=== PATIENT | male | born 1990 | race American Indian/Alaskan Native ===

== ENCOUNTER 2020-05-08 20:38 | Emergency (ER) | payer SELFPAY ==
[2020-05-08 21:42] VITALS: BP 127/64
--- NOTE | 2020-05-08 21:51 | Emergency Department Report ---
ED General Adult HPI - General Chief complaint: Skin/Abscess/Foreign Body Stated complaint: FINGER INFECTION Time Seen by Provider: 05/08/20 21:47 Source: patient Mode of arrival: Ambulatory Limitations: No Limitations - History of Present Illness Initial comments: 30-year-old -[place] male patient presents with complaints of right middle finger pain and swelling x5 days. Patient states 2 days ago he went to an urgent care and was placed on Bactrim, however the swelling and pain is worsened. He denies any fever/chills/sweats and states he does have difficulty bending the finger due to swelling and pain. No loss of sensation per patient. He denies any past medical history. Severity scale (0 -10): 2 - Related Data Previous Rx's Medication Instructions Recorded Last Taken Type Acetaminophen/Codeine [Tylenol #3] 1 tab PO Q6H PRN #20 tab 07/12/15 Unknown Rx Cyclobenzaprine [Flexeril] 10 mg PO TID PRN #30 tablet 07/12/15 Unknown Rx Ibuprofen [Motrin] 600 mg PO Q8H PRN #40 tablet 07/12/15 Unknown Rx Mupirocin [Bactroban 2% OINT] 1 applic TP TID 7 Days #1 tube 05/08/20 Unknown Rx traMADoL [Ultram 50 MG tab] 50 mg PO Q8HR PRN #4 tablet 05/08/20 Unknown Rx Allergies Allergy/AdvReac Type Severity Reaction Status Date / Time petrolatum,white Allergy Hives Verified 07/11/15 21:47 [From Vaseline] ED Review of Systems ROS: Stated complaint: FINGER INFECTION Other details as noted in HPI Constitutional: denies: chills, fever, malaise Musculoskeletal: joint swelling, arthralgia Skin: change in color Neurological: denies: headache, numbness, paresthesias ED Past Medical Hx - Past Medical History Previous Medical History?: No - Surgical History Past Surgical History?: No - Social History Smoking Status: Current Some Day Smoker Substance Use Type: Alcohol - Medications Home Medications: Home Medications Medication Instructions Recorded Confirmed Last Taken Type Acetaminophen/Codeine [Tylenol #3] 1 tab PO Q6H PRN #20 tab 07/12/15 Unknown Rx Cyclobenzaprine [Flexeril] 10 mg PO TID PRN #30 tablet 07/12/15 Unknown Rx Ibuprofen [Motrin] 600 mg PO Q8H PRN #40 tablet 07/12/15 Unknown Rx Mupirocin [Bactroban 2% OINT] 1 applic TP TID 7 Days #1 tube 05/08/20 Unknown Rx traMADoL [Ultram 50 MG tab] 50 mg PO Q8HR PRN #4 tablet 05/08/20 Unknown Rx ED Physical Exam - General Limitations: No Limitations General appearance: alert, in no apparent distress - Head Head exam: Present: atraumatic, normocephalic - Eye Eye exam: Present: normal appearance. Absent: scleral icterus - Respiratory Respiratory exam: Absent: respiratory distress - Cardiovascular Cardiovascular Exam: Present: regular rate - Extremities Exam Extremities exam: Present: full ROM - Neurological Exam Neurological exam: Present: alert, oriented X3, normal gait - Psychiatric Psychiatric exam: Present: normal affect, normal mood - Skin Skin exam: Present: warm, dry, other (Swelling and erythema with fluctuance to the lower nailbed of the right middle finger noted on exam consistent with paronychia; normal perfusion and sensation of the finger noted; there is decreased flexion of the finger secondary to swelling). Absent: rash ED Course Vital Signs 05/08/20 21:41 Temperature 98.4 F Pulse Rate 78 Respiratory 16 Rate Blood Pressure 127/64 O2 Sat by Pulse 97 Oximetry - I & D Finger Type of Procedure: Simple Site: Right middle finger Blade Size: 11 I & D Procedure: betadine prep, sterile drapes applied, sterile dressing applied Progress: Digital block performed the right middle finger with 7 cc of lidocaine 1% without epi. Moderate purulent drainage was obtained. Culture sent. Minimal bleeding occurred. Patient tolerated procedure well without any immediate complications. ED Medical Decision Making - Medical Decision Making 30-year-old -[place] male patient presents with complaints of right middle finger pain and swelling x5 days. Patient states 2 days ago he went to an urgent care and was placed on Bactrim, however the swelling and pain is worsened. He denies any fever/chills/sweats and states he does have difficulty bending the finger due to swelling and pain. No loss of sensation per patient. He denies any past medical history. Incision and drainage performed. Patient tolerated procedure well. Patient to continue taking Bactrim. Prescription for Bactroban given. Discussed wound care and signs and symptoms that should prompt immediate return to the emergency department in detail patient verbalized understanding. He is well-appearing, his vitals are normal, he is stable for discharge home. Patient to follow-up with a primary care doctor in 3 to 5 days for wound recheck. Critical care attestation.: If time is entered above; I have spent that time in minutes in the direct care of this critically ill patient, excluding procedure time. ED Disposition Clinical Impression: Paronychia of right middle finger Disposition: - TO HOME OR SELFCARE Is pt being admited?: No Condition: Stable Instructions: Paronychia, Incision and Drainage, Care After Prescriptions: Mupirocin [Bactroban 2% OINT] 1 applic TP TID 7 Days #1 tube traMADoL [Ultram 50 MG tab] 50 mg PO Q8HR PRN #4 tablet PRN Reason: Pain , Severe (7-10) Referrals: PRIMARY CARE, [Primary Care Provider] - 3-5 Days
[2020-05-08] MEDS ORDERED: LIDOCAINE (1%) 10 MG/1 ML VIAL 20 ML MDV INFILTRATI ONE (22:52)
== END 2020-05-09 00:06 | disposition home or self-care (01) ==
LOC: ED 20:38
DX: L03.011 Cellulitis of right finger (principal); F17.200 Nicotine dependence, unspecified, uncomplicated; Z91.048 Other nonmedicinal substance allergy status; Z79.899 Other long term (current) drug therapy
CPT/HCPCS: 87116